=== PATIENT | female | born 1980 | race Two or more races ===

== ENCOUNTER 2024-05-26 13:06 | Outpatient (AMB) | payer OTHER, SELFPAY ==
--- NOTE | 2024-05-26 13:29 | GSCOFFNT_ITS ---
Vital Signs - [facility] 05/26/24 13:30 Height 1.57 m Height Method Stated Weight 79.52 kg Weight Measurement Method Standing Scale BMI 32.2 BP 137/89 H Blood Pressure Source Automatic Cuff Blood Pressure Location Right Upper Arm Position Sitting Respiration 18 Pulse 83 Pulse Source Monitor Temp 96.8 F Temp Source Temporal Artery Scan Pulse Oximetry (%) 96 Oxygen Delivery Method Room Air Med/Allergies Allergies & Medications Allergies No Known Allergies Allergy (Unknown, Uncoded 05/26/24 13:31) MA Intake Visit Data Collection New Patient or Established: Established Patient (seen at [facility] within 3 years) Seen by Clinical Staff ONLY (RN/MA): No Reason for Visit:: CT SCAN RESULTS Pain Present Currently: No Pain scale:: 0 Supervising Deputy Required: No PCP or OBGYN visit in last 3 months: Yes Hx Now: No Do You Feel Safe at Home: Yes Authorities Contacted: N/A Smoking Status Smoking Status: Never smoker Immunization / Flu Flu Vaccine in the Last 12 Months: Yes Flu Vaccine Exclusion Criteria: Already Received Past Medical History Social History SMOKING STATUS: Smoking status: Never smoker HPI HPI Narrative 43F presenting for follow up of LLQ pain. Pt reports she has felt a bit better since last visit, although she sometimes has R sided pain. Pt states her pain tends to improve after having BMs and that her BMs have been more regular lately without any straining. She again denies any blood per rectum, change in stool caliber and unintentional weight loss ROS Review of Systems Systems Reviewed: All systems reviewed, normal except as documented Objective/Exam General General Appearance: alert, cooperative and well groomed Resp Respiratory exam: Absent respiratory distress Assessment & Plan Diagnosis / Problem List (1) Diverticulosis: Status: Acute Assessment & Plan: 43F with intermittent LLQ pain, CT findings of diverticulosis. I encouraged pt to drink plenty of water daily (2-3L as tolerated) and once she is used to that begin fiber supplementation with fiber in powder form. All questions were answered and pt is encouraged to follow up as needed Office Procedures GNS Level of Care Nursing/Assessment Patient Status: Established Patient Nursing Assessment/Reassesment: Medication Reconciliation, Update PMH in EMR and Vital Signs Coordination of Care: Complex Care and Chronic Disease 1-5, Education Complex Pt/Fam, Consent,records obtained, informed consent, Results/Orders obtained and Staff clarify orders Established Patient Charge Established Patient Point Assignment: 95 Established Patient Point Charge: EP Level 3 (80-115) Patient Portal Questionaires Social History Tobacco History Smoking Status: Never smoker Domestic Abuse History Do You Feel Safe at Home: Yes Review of Systems Report any current symptoms Only answer those that you have currently: Past Medical History Past Medical History Have you ever been diagnosed with any of the following:
[2024-05-26 13:30] VITALS: BP 137/89; PULSE 83; RESP 18; TEMP 36; O2SAT 96; BMI 32.2
== END 2024-05-26 13:42 | disposition home or self-care (01) ==
LOC: HODSRG 13:06
PROVIDERS: Supervising Provider Surgery; Visit Provider Surgery
DX: K57.90 Diverticulosis of intestine, part unspecified, without perforation or abscess without bleeding (principal)
CPT/HCPCS: 99213; G0463

== ENCOUNTER → 2024-08-01 | Outpatient (CLI) | payer OTHER, SELFPAY ==
--- NOTE | 2024-08-01 16:30 | XR_ITS ---
Examination: CT maxillofacial, without intravenous contrast. 2-D sagittal reconstructions. 3-D reconstructions. Date and time of exam:August 01, 2024 1622 hours INDICATIONS: Sinus pressure and pain 3 years CTDI: vol (mGy):16.2 DLP: (mGycm):302 Technique: Multiple axial images of maxillofacial region, 3.0 mm slice thickness. 2-D sagittal and coronal reconstructions. 3-D reconstructions. Low dose protocols were performed. One or more of the following dose reduction techniques were used; automated exposure control, adjustment of the mA and/or KV according to patient size, use of iterative reconstruction technique. Findings: Mild mucosal thickening frontal ethmoid air cells No occlusion ostiomeatal complexes Trace mucosal disease in the left maxillary antrum No fluid levels No retention cysts No cortical bone destruction No hypertrophy nasal turbinates IMPRESSION: Chronic sinus disease as above .
== END | disposition home or self-care (01) ==
LOC: CCTX 16:14
PROVIDERS: Referring Provider Family Medicine; Visit Provider Family Medicine
DX: J32.8 Other chronic sinusitis (principal)
CPT/HCPCS: 70486